=== PATIENT | female | born 2000 | race Caucasian/White ===

== ENCOUNTER → 2021-01-14 | Outpatient (CLI) | payer OTHER, BC ==
--- NOTE | 2021-01-15 09:42 | RAD ---
Study: XR HAND_RIGHT 3 VIEWS Indication: Dog bite. Comparison: None. Findings: No acute fracture. Alignment is anatomic. Maintained joint spaces. No retained radiopaque foreign bod y. Impression: No acute fracture or retained radiopaque foreign body. Electronically signed by: NI VACA MD (01/15/2021 9:39 AM) [id number]
== END ==
LOC: RAD 15:43
PROVIDERS: ATTEND Nurse Practitioner Family
DX: S61.051A Open bite of right thumb without damage to nail, initial encounter (principal); W54.0XXA Bitten by dog, initial encounter; Y93.89 Activity, other specified; Y92.89 Other specified places as the place of occurrence of the external cause; Y99.8 Other external cause status
CPT/HCPCS: 73130